=== PATIENT | male | born 1950 | race Caucasian/White ===

== ENCOUNTER 2022-07-23 14:07 | Inpatient (IN) | payer MEDICARE ==
[~2022-07-23 14:07] MED LIST: Iopamidol 370 76% 100 ML VIAL ONE; Iopamidol 370 76% 50 ML VIAL FS ONE
[2022-07-23] MEDS ORDERED: Norepinephrine 4 MG/4 ML VIAL ONE ×2 (14:55→14:57)
[2022-07-23] MEDS ORDERED: Aggrastat 12.5 MG/250 ML 250 ML ONE (14:58)
[2022-07-23] MEDS ORDERED: Nitroglycerin 50 MG/250 ML BOT 0 ML ONE (15:04)
[2022-07-23] MEDS ORDERED: TICAGRELOR 90 MG TABLET ONE (15:45)
[2022-07-23] MEDS ORDERED: traMADol HCl 50 MG TAB PO PRN (15:55)
[2022-07-23] MEDS ORDERED: Mag-Al 1200 mg/1200 mg/30 ML UDCUP PO PRN (15:55)
[2022-07-23] MEDS ORDERED: Milk Of Magnesia 30 ML UDCUP PO PRN (15:55)
[2022-07-23] MEDS ORDERED: Morphine 2 MG/ML VIAL SLOW IVP PRN (15:55)
[2022-07-23] MEDS ORDERED: Zolpidem Tartrate 5 MG TAB PO PRN (15:55)
[2022-07-23] MEDS ORDERED: Acetaminophen/Codeine 30-300mg Tablet PO PRN (15:55)
[2022-07-23] MEDS ORDERED: Sodium Chloride 0.9% 500 ML IV SCH (16:00)
[2022-07-23 17:14] LABS: Troponin I 12.082 ng/mL (< 0.028)
[2022-07-23 17:33] VITALS: BMI 26.6
[2022-07-23 18:28] LABS: SARS-CoV-2 NAA Rapid Test Not Detected (NotDetected)
[2022-07-23] MEDS ORDERED: Potassium Chloride 20 MEQ TAB PO SCH (18:30)
[2022-07-23] MEDS: TICAGRELOR 90 MG TABLET PO SCH (20:17)
[2022-07-23] MEDS ORDERED: Atorvastatin Calcium 40 MG TAB PO SCH (21:00)
[2022-07-24 03:55] LABS: #Eosinphils 0.1 thou/uL (0.0-0.7); #Lymphocytes 1.9 thou/uL (1.20-3.40); #Neutrophils 7.6 thou/uL (1.40-6.50); %Basophils 0.4 % (0.0-1.0); %Lymphocytes 17.8 % (21.0-51.0); %Monocytes 9.6 % (0.0-10.0); %Neutrophils 71.2 % (42.0-75.0); Hemoglobin 13.9 g/dL (14.0-18.0); Mean Corpuscular HGB CONC 35.1 g/dL (32.0-36.0); Mean Corpuscular Hemoglobin 33.8 pg (27.0-31.0); Mean Corpuscular Volume 96.3 fL (78.0-98.0); Mean Platelet Volume 8.6 fL (7.4-10.4); Platelet Count 199 thou/uL (130-400); RBC Distribution Width 12.1 % (11.5-14.5); Red Blood Cell (RBC) Count 4.11 mill/uL (4.70-6.10); White Blood Cell (WBC) Count 10.6 thou/uL (4.8-10.8)
[2022-07-24 04:15] LABS: ALT (SGPT) 31 U/L (8-55); AST (SGOT) 97 U/L (5-34); Albumin 3.6 g/dL (3.4-4.8); Alkaline Phosphatase 39 U/L (40-110); Anion Gap 12 mmol/L (10-20); BUN (Urea Nitrogen) 14 mg/dL (8.4-25.7); Bilirubin, Total 0.6 mg/dL (0.2-1.2); Calc. Creatinine Clearance 106 mL/min (70-130); Calcium 8.3 mg/dL (7.8-10.44); Carbon Dioxide 21 mmol/L (23-31); Cardiac Risk 3.1 (Less than 4.5); Chloride 111 mmol/L (98-107); Cholesterol 126 mg/dl (< 200 Desired); Estimated GFR 95; Globulin 2.2 g/dL (2.4-3.5); Glucose 120 mg/dL (80-115); HDL Cholesterol 41 mg/dL (>60 Neg Risk); LDL Cholesterol, Calculated 70 mg/dL; Potassium 3.8 mmol/L (3.5-5.1); Protein, Total 5.8 g/dL (5.8-8.1); Sodium 140 mmol/L (136-145); Triglycerides 73 mg/dL (Less than 150)
[2022-07-24 04:33] LABS: Thyroid Stimulating Hormone 1.6958 uIU/mL (0.35-4.94)
[2022-07-24 05:02] LABS: Free T4 (Free Thyroxine) 0.84 ng/dL (0.70-1.48)
[2022-07-24] MEDS: Aspirin Chewable 81 MG TAB PO SCH (08:36)
[2022-07-24] MEDS: TICAGRELOR 90 MG TABLET PO SCH ×2 (08:36→21:12)
[2022-07-24] MEDS ORDERED: Rosuvastatin 20 MG TAB PO SCH (21:00)
[2022-07-25 04:55] LABS: #Eosinphils 0.3 thou/uL (0.0-0.7); #Lymphocytes 2.7 thou/uL (1.20-3.40); #Monocytes 0.9 thou/uL (0.11-0.59); #Neutrophils 5.6 thou/uL (1.40-6.50); %Basophils 0.3 % (0.0-1.0); %Eosinophils 3.1 % (0.0-10.0); %Lymphocytes 28.5 % (21.0-51.0); %Monocytes 9.2 % (0.0-10.0); %Neutrophils 58.9 % (42.0-75.0); Mean Corpuscular HGB CONC 33.9 g/dL (32.0-36.0); Mean Corpuscular Hemoglobin 32.8 pg (27.0-31.0); Mean Corpuscular Volume 96.7 fL (78.0-98.0); Mean Platelet Volume 8.7 fL (7.4-10.4); Platelet Count 199 thou/uL (130-400); RBC Distribution Width 12.2 % (11.5-14.5); Red Blood Cell (RBC) Count 4.28 mill/uL (4.70-6.10); White Blood Cell (WBC) Count 9.4 thou/uL (4.8-10.8)
[2022-07-25 05:16] LABS: Anion Gap 14 mmol/L (10-20); BUN (Urea Nitrogen) 12 mg/dL (8.4-25.7); Calc. Creatinine Clearance 109 mL/min (70-130); Calcium 8.4 mg/dL (7.8-10.44); Carbon Dioxide 21 mmol/L (23-31); Chloride 107 mmol/L (98-107); Estimated GFR 96; Glucose 95 mg/dL (80-115); Magnesium 1.8 mg/dL (1.6-2.6); Potassium 3.7 mmol/L (3.5-5.1); Sodium 138 mmol/L (136-145)
[2022-07-25] MEDS ORDERED: Finasteride 5 MG TAB PO SCH (09:00)
[2022-07-25] MEDS: TICAGRELOR 90 MG TABLET PO SCH (09:12)
[2022-07-25] MEDS: Aspirin Chewable 81 MG TAB PO SCH (09:12)
[2022-07-25 11:32] VITALS: TEMP 98.4
[2022-07-25 13:01] VITALS: BP 120/69
== END 2022-07-25 14:45 | disposition home or self-care (01) | DRG 247 ==
LOC: SDC 14:07 → CCU 15:56 → 2NO 07-24 13:41
PROVIDERS: ADMIT Internal Medicine Cardiovascular Disease; ATTEND Internal Medicine Cardiovascular Disease
PROC: 027035Z Dilation of Coronary Artery, One Artery with Two Drug-eluting Intraluminal Devices, Percutaneous Approach (ICD-10-PCS; principal; 2022-07-23)
PROC: 4A023N7 Measurement of Cardiac Sampling and Pressure, Left Heart, Percutaneous Approach (ICD-10-PCS; 2022-07-23)
PROC: B2111ZZ Fluoroscopy of Multiple Coronary Arteries using Low Osmolar Contrast (ICD-10-PCS; 2022-07-23)
PROC: B2151ZZ Fluoroscopy of Left Heart using Low Osmolar Contrast (ICD-10-PCS; 2022-07-23)
PROC: 02C03ZZ Extirpation of Matter from Coronary Artery, One Artery, Percutaneous Approach (ICD-10-PCS; 2022-07-23)
DX: I21.19 ST elevation (STEMI) myocardial infarction involving other coronary artery of inferior wall (principal); Z20.822 Contact with and (suspected) exposure to COVID-19; K21.9 Gastro-esophageal reflux disease without esophagitis; N40.0 Benign prostatic hyperplasia without lower urinary tract symptoms; F17.210 Nicotine dependence, cigarettes, uncomplicated; I25.10 Atherosclerotic heart disease of native coronary artery without angina pectoris; Z98.890 Other specified postprocedural states; Z79.899 Other long term (current) drug therapy
CPT/HCPCS: 36415; 80048; 80053; 80061; 82553; 83735; 83880; 84439; 84443; 84481; 85025; 85347; 92941; 93005; 93010; 93306; 93458; 93798; C1725; C1757; C1769; C9606; J3246; Q9967; U0002